=== PATIENT | male | born 2000 | race Caucasian/White ===

== ENCOUNTER 2019-03-25 11:01 | Emergency (ER) | payer OTHER ==
[~2019-03-25] VITALS: Ht 162.6 cm; Wt 98.0 kg
[2019-03-25 11:05] VITALS: BP 151/92
--- NOTE | 2019-03-25 11:14 | NUR ---
18/M BIB SELF C/O ABRASION WOUND TO L WRIST & PAIN S/P PATIENT'S CAT SCRATCHED X 2 DAYS. CAT HAS VACCINE; UTD.PATIENT STATES PAIN OF 5/10 AT THIS TIME. PATIENT POSITIONED FOR COMFORT; HOB ELEVATED; BEDRAILS UP X1; BED DOWN. ER MD MADE AWARE OF PT STATUS.
[2019-03-25 11:48] VITALS: BP 148/90
--- NOTE | 2019-03-25 11:48 | NUR ---
Patient discharged with v/s stable. Written and verbal after care instructions given and explained. Patient alert, oriented and verbalized understanding of instructions. Ambulatory with steady gait. All questions addressed prior to discharge. ID band removed. Patient advised to follow up with PMD. Copy of tetanus consent was given to patient for his records. Rx of Augmentin given. Patient instructed to complete antibiotics for the full 10 days. Patient educated on indication of medication including possible reaction and side effects. Opportunity to ask questions provided and answered.
== END 2019-03-25 11:48 | disposition home or self-care (01) ==
LOC: MED 11:01
DX: S60.512A Abrasion of left hand, initial encounter (principal); S60.511A Abrasion of right hand, initial encounter; L03.114 Cellulitis of left upper limb; L03.113 Cellulitis of right upper limb; Z88.8 Allergy status to other drugs, medicaments and biological substances; W55.03XA Scratched by cat, initial encounter; Y93.89 Activity, other specified; Y92.89 Other specified places as the place of occurrence of the external cause; Y99.8 Other external cause status
CPT/HCPCS: 90471; 90715; 99283